=== PATIENT | female | born 1960 | race Caucasian/White ===

== ENCOUNTER 2016-10-07 17:34 | Emergency (ER) | payer OTHER ==
[~2016-10-07] VITALS: Wt 88.0 kg
[2016-10-07 19:12] LABS: ADD SCAN DIFF NO
[2016-10-07 19:17] LABS: ABNORMAL IP MESSAGE 1; BASOPHIL # 0.1 10^3/ul (0.0-0.1); BASOPHILS % 0.6 % (0.0-2.0); EOSINOPHILS # 0.1 10^3/ul (0.0-0.5); EOSINOPHILS % 1.7 % (0.0-7.0); HEMATOCRIT 31.8 % (37.0-47.0); HEMOGLOBIN 10.4 g/dl (12.0-16.0); LYMPHOCYTES # 1.5 10^3/ul (0.8-2.9); LYMPHOCYTES % 17.8 % (15.0-51.0); MEAN CORPUSCULAR HEMOGLOBIN 35.6 pg (29.0-33.0); MEAN CORPUSCULAR HGB CONC 32.7 g/dl (32.0-37.0); MEAN CORPUSCULAR VOLUME 108.9 fl (82.0-101.0); MEAN PLATELET VOLUME 9.5 fl (7.4-10.4); MONOCYTE # 0.6 10^3/ul (0.3-0.9); MONOCYTES % 7.2 % (0.0-11.0); NEUTROPHIL # 5.9 10^3/ul (1.6-7.5); NEUTROPHILS % 71.3 % (39.0-77.0); NUCLEATED RED BLOOD CELLS # 0.1 10^3/ul (0.0-0.0); NUCLEATED RED BLOOD CELLS% 0.8 /100WBC (0.0-0.0); PLATELET COUNT 257 10^3/UL (140-415); RED BLOOD COUNT 2.92 10^6/ul (4.20-5.40); RED CELL DISTRIBUTION WIDTH 25.9 % (11.5-14.5); WHITE BLOOD COUNT 8.3 10^3/ul (4.8-10.8)
--- NOTE | 2016-10-07 19:17 | ERD ---
ER Documentation Chief Complaint Date/Time DATE: 10/07/16 TIME: 19:10 Chief Complaint fever, on oral chemo , was told by pmd to come to er HPI 56-year-old female with history of stage IV right breast cancer being treated with tamoxifen and capecitabine referred to the ED by her oncologist Dr. Hammond for evaluation of fever. Patient complains of nonspecific URI symptoms including rhinorrhea, nonproductive cough and body aches over the last 3-4 days and yesterday developed fevers up to 101.6 for which he has been taking acetaminophen. Multiple family members with similar illnesses. Denies headache or neck pain. No visual changes, focal weakness or numbness. Denies chest pain or palpitations. No abdominal pain, nausea, vomiting, diarrhea or constipation. Denies dysuria, polyuria, hematuria or flank pain. No leg pain or swelling. No skin rash. ROS All systems reviewed and are negative except as per history of present illness. Medications Home Meds Reported Medications Tamoxifen Citrate* (Tamoxifen Citrate*) 10 Mg Tab, 20 MG PO DAILY, TAB 10/07/16 Capecitabine* (Xeloda*) 500 Mg Tablet, 1000 MG PO BID, TBS 10/07/16 Allergies Allergies: Coded Allergies: aspirin (Unverified Allergy, Unknown, 10/07/16) codeine (Verified Allergy, Unknown, 10/07/16) Uncoded Allergies: PENICILLIN (Allergy, Unknown, 10/07/16) PMhx/Soc Reviewed in chart. As per HPI. History of Surgery: Yes (csection x 2) Hx Miscellaneous Medical Probl: Yes (right breast cancer) Hx Alcohol Use: No Hx Substance Use: No Hx Tobacco Use: Yes Smoking Status: Current every day smoker FmHx Sister: Colon/bladder/uterine cancer Physical Exam Vitals Vital Signs Date Time Temp Pulse Resp B/P Pulse Ox O2 Delivery O2 Flow Rate FiO2 10/07/16 17:38 100.3 98 20 143/71 99 Physical Exam Const: Alert, no acute distress Head: Atraumatic Eyes: Normal Conjunctiva ENT: Normal External Ears, Nose and Mouth. Neck: Full range of motion. Nontender. No meningismus. Resp: Clear to auscultation bilaterally. No rales rhonchi or wheezes. Cardio: Regular rate and rhythm, no murmurs Abd: Soft, non tender, non distended. Normal bowel sounds. No rebound or guarding. No masses or abnormal pulsations. Skin: No petechiae or rashes Back: No midline or flank tenderness Ext: No cyanosis, or edema. No calf swelling or tenderness. Neur: Awake and alert. No focal deficit observed. Psych: Normal Mood and Affect Result Diagram: 10/07/16190410/07/161904 Results 24 hrs Laboratory Tests Test 10/07/16 19:05 White Blood Count 8.310^3/ul Red Blood Count 2.9210^6/ul Hemoglobin 10.4g/dl Hematocrit 31.8% Mean Corpuscular Volume 108.9fl Mean Corpuscular Hemoglobin 35.6pg Mean Corpuscular Hemoglobin Concent 32.7g/dl Red Cell Distribution Width 25.9% Platelet Count 66356^3/UL Mean Platelet Volume 9.5fl Neutrophils % 71.3% Lymphocytes % 17.8% Monocytes % 7.2% Eosinophils % 1.7% Basophils % 0.6% Nucleated Red Blood Cells % 0.8/100WBC Neutrophils # 5.910^3/ul Lymphocytes # 1.510^3/ul Monocytes # 0.610^3/ul Eosinophils # 0.110^3/ul Basophils # 0.110^3/ul Nucleated Red Blood Cells # 0.110^3/ul Urine Color LT. YELLOW Urine Clarity CLEAR Urine pH 5.5 Urine Specific [place] 1.010 Urine Ketones NEGATIVE Urine Nitrite NEGATIVE Urine Bilirubin NEGATIVE Urine Urobilinogen 0.2 E.U./dL Urine Leukocyte Esterase NEGATIVE Urine Hemoglobin NEGATIVE Urine Glucose NEGATIVE% Urine Total Protein NEGATIVE Sodium Level 141mmol/L Potassium Level 3.8mmol/L Chloride Level 109mmol/L Carbon Dioxide Level 25mmol/L Anion Gap 11 Blood Urea Nitrogen 10mg/dl Creatinine 0.67mg/dl Glucose Level 119mg/dl Calcium Level 8.7mg/dl PROCEDURE: XR Chest. CLINICAL INDICATION: Fever/Cough TECHNIQUE: Single frontal view of the chest was obtained COMPARISON: None FINDINGS: The heart and mediastinum are within normal limits. The lungs are clear. There is no pleural effusion or pneumothorax. The bones and soft tissue show no acute change. IMPRESSION: No acute abnormalities are identified on this single view. RPTAT:AAJJ Physician Marianela Date Time Electronically viewed and signed by Carter Nguyen Physician on 10/07/2016 19: 57 [facility]/ Procedures/MDM DOCUMENTS REVIEWED: ED nurse, no prior records MEDICAL DECISION MAKIN-year-old female with history of stage IV right breast cancer being treated with tamoxifen and capecitabine referred to the ED by her oncologist Dr. Hammond for evaluation of fever. No radiographic evidence of pneumonia. Abdominal exam is benign without rebound, guarding or signs of peritonitis and acute intra-abdominal process is unlikely. No urinary tract infection or pyelonephritis. No skin rash or cellulitis. No leukopenia or sepsis. Patient presents with symptoms and nonspecific syndrome consistent with viral illness. Stable for discharge with symptomatic care, acetaminophen as needed for fever, precautionary instructions and outpatient follow-up as counseled. Counseled patient and family regarding diagnostic workup, diagnosis and need for followup. Understands to return to ED if symptoms recur, worsen or any other concerns. Departure Diagnosis: Primary Impression: Fever Fever type: unspecified Qualified Code: R50.9 - Fever, unspecified fever cause Additional Impressions: Nonspecific syndrome suggestive of viral illness Breast cancer Breast location: unspecified site of breast Patient sex: female Laterality : right Qualified Code: C50.911 - Malignant neoplasm of right female breast, unspecified site of breast Condition: CHRISTINA Mason MD Oct 07, 2016 19:17
[2016-10-07] MEDS ORDERED: CAPE500T11 PO (19:19)
[2016-10-07] MEDS ORDERED: TAMO10TA20 PO (19:20)
[2016-10-07 19:21] LABS: ADD UMIC NO; URINE BILIRUBIN (Dip) NEGATIVE (NEGATIVE); URINE BLOOD (Dip) NEGATIVE (NEGATIVE); URINE COLOR LT. YELLOW (YELLOW); URINE GLUCOSE (Dip) NEGATIVE (NEGATIVE); URINE KETONES (Dip) NEGATIVE (NEGATIVE); URINE LEUKOCYTE ESTERASE (Dip) NEGATIVE (NEGATIVE); URINE NITRITE (Dip) NEGATIVE (NEGATIVE); URINE TOTAL PROTEIN (Dip) NEGATIVE (NEGATIVE); URINE UROBILINOGEN (Dip) 0.2 E.U./dL (0.1-1.0)
[2016-10-07 19:44] LABS: CALCIUM 8.7 mg/dl (8.4-10.2); CREATININE 0.67 mg/dl (0.44-1.00); POTASSIUM 3.8 mmol/L (3.5-5.1)
--- NOTE | 2016-10-07 19:58 | RADRPT ---
PROCEDURE: XR Chest. CLINICAL INDICATION: Fever/Cough TECHNIQUE: Single frontal view of the chest was obtained COMPARISON: None FINDINGS: The heart and mediastinum are within normal limits. The lungs are clear. There is no pleural effusion or pneumothorax. The bones and soft tissue show no acute change. IMPRESSION: No acute abnormalities are identified on this single view. RPTAT:AAJJ Physician Marianela Date Time Electronically viewed and signed by Carter Nguyen Physician on 10/07/2016 19:57 /
[2016-10-07 20:08] VITALS: BP 131/78; PULSE 78; RESP 17; TEMP 99.8
== END 2016-10-07 21:02 | disposition home or self-care (01) ==
LOC: E/R 17:34
DX: R50.9 Fever, unspecified (principal); F17.210 Nicotine dependence, cigarettes, uncomplicated; C50.911 Malignant neoplasm of unspecified site of right female breast; B34.9 Viral infection, unspecified; R40.2142 Coma scale, eyes open, spontaneous, at arrival to emergency department; R40.2252 Coma scale, best verbal response, oriented, at arrival to emergency department; R40.2362 Coma scale, best motor response, obeys commands, at arrival to emergency department
CPT/HCPCS: 36415; 71010; 80048; 81003; 85025; Z7502

== ENCOUNTER 2016-12-16 07:27 | Emergency (ER) | payer OTHER ==
[~2016-12-16] VITALS: Ht 167.6 cm; Wt 81.0 kg
[~2016-12-16 07:27] MED LIST: CAPE500T11 PO; TAMO10TA20 PO
[2016-12-16 07:30] VITALS: Ht 167.6 cm; Wt 81.0 kg
[2016-12-16 08:58] LABS: ADD UMIC YES; UR ASCORBIC ACID NEGATIVE (NEGATIVE); UR BACTERIA MODERATE /HPF (NONE SEEN); UR BILIRUBIN (Dip) NEGATIVE (NEGATIVE); UR BLOOD (Dip) 3+ mg/dL (NEGATIVE); UR CLARITY CLOUDY (CLEAR); UR COLOR AMBER (YELLOW); UR GLUCOSE (Dip) NEGATIVE (NEGATIVE); UR KETONES (Dip) NEGATIVE (NEGATIVE); UR LEUKOCYTE ESTERASE (Dip) 3+ Leu/ul (NEGATIVE); UR MUCUS FEW /HPF (NONE SEEN); UR NITRITE (Dip) NEGATIVE (NEGATIVE); UR RBC > 182 /HPF (0-5); UR RENAL EPITHELIAL CELL FEW /HPF (NONE SEEN); UR SPECIFIC GRAVITY (Dip) 1.021 (1.003-1.030); UR SQUAMOUS EPITHELIAL CELL FEW /HPF (FEW); UR TOTAL PROTEIN (Dip) 2+ mg/dl (NEGATIVE); UR UROBILINOGEN (Dip) NEGATIVE (NEGATIVE); UR WBC CLUMPS MANY /HPF (NONE SEEN)
[2016-12-16] MEDS ORDERED: CIPR500T4 PO (09:49)
[2016-12-16] MEDS ORDERED: PHEN-537 PO (09:49)
[2016-12-16] MEDS ORDERED: NITR-58 PO (09:49)
--- NOTE | 2016-12-16 09:52 | ERD ---
ER Documentation Chief Complaint Date/Time DATE: 12/16/16 TIME: 09:50 Chief Complaint Pain and blood with urination x this am HPI This 56-year-old female comes emergency room with episode of hematuria and decreased urination. Hematuria she noticed this morning. Has mild dysuria. She has no fevers chills or back pain. She is currently on chemotherapy for breast cancer. ROS All systems reviewed and are negative except as per history of present illness. Medications Home Meds Active Scripts Phenazopyridine Hcl* (Pyridium*) 100 Mg Tab, 100 MG PO TID, #8 TAB Prov:YUN PORTER DO 12/16/16 Ciprofloxacin Hcl* (Ciprofloxacin Hcl*) 500 Mg Tablet, 500 MG PO BID, #10 TAB Prov:YUN PORTER DO 12/16/16 Nitrofurantoin Monohyd Macrocr* (Macrobid*) 100 Mg Capsr, 100 MG PO BID, #10 CAP Prov:YUN PORTER DO 12/16/16 Reported Medications Tamoxifen Citrate* (Tamoxifen Citrate*) 10 Mg Tab, 20 MG PO DAILY, TAB 10/07/16 Capecitabine* (Xeloda*) 500 Mg Tablet, 1000 MG PO BID, TBS 10/07/16 Allergies Allergies: Coded Allergies: aspirin (Unverified Allergy, Unknown, 12/16/16) codeine (Verified Allergy, Unknown, 12/16/16) Uncoded Allergies: PENICILLIN (Allergy, Unknown, 10/07/16) PMhx/Soc History of Surgery: Yes (csection x 2) Hx Miscellaneous Medical Probl: Yes (right breast cancer) Hx Alcohol Use: No Hx Substance Use: No Hx Tobacco Use: Yes Smoking Status: Never smoker Physical Exam Vitals Vital Signs Date Time Temp Pulse Resp B/P Pulse Ox O2 Delivery O2 Flow Rate FiO2 12/16/16 07:30 97.4 81 18 172/86 97 Physical Exam Const: [] No distress Head: Atraumatic Abd: Soft, non tender, non distended. Normal bowel sounds Skin: No petechiae or rashes Back: No midline or flank tenderness Ext: No cyanosis, or edema Neur: Awake and alert Results 24 hrs Laboratory Tests Test 12/16/16 08:15 Urine Color DARRELL Urine Clarity CLOUDY Urine pH 5.0 Urine Specific [place] 1.021 Urine Ketones NEGATIVEmg/dL Urine Nitrite NEGATIVEmg/dL Urine Bilirubin NEGATIVEmg/dL Urine Urobilinogen NEGATIVEmg/dL Urine Leukocyte Esterase 3+Lynne/ul Urine Microscopic RBC > 182/HPF Urine Microscopic WBC > 182/HPF Urine Squamous Epithelial Cells FEW/HPF Urine Renal Epithelial Cells FEW/HPF Urine Bacteria MODERATE/HPF Urine Mucus FEW/HPF Urine Hemoglobin 3+mg/dL Urine Glucose NEGATIVEmg/dL Urine Total Protein 2+mg/dl Procedures/MDM UTI without any signs of systemic infection. Stable vital signs. I am going to discharge her with both Cipro and Macrobid for complicated UTI secondary to be on chemotherapy. Also giving her Pyridium. Primary care follow-up in 2 3 days and return precautions. Departure Diagnosis: Primary Impression: Cystitis Condition: Stable Patient Instructions: Cystitis Additional Instructions: Call your primary care doctor TOMORROW for an appointment during the next 2-3 days.See the doctor sooner or return here if your condition worsens before your appointment time. YUN PORTER DO Dec 16, 2016 09:52
[2016-12-16 10:06] VITALS: BP 162/86; PULSE 70; RESP 18; TEMP 97.4
== END 2016-12-16 10:22 | disposition home or self-care (01) ==
LOC: FTE 07:27
DX: N30.91 Cystitis, unspecified with hematuria (principal); C50.911 Malignant neoplasm of unspecified site of right female breast
CPT/HCPCS: 81001; Z7502; 99284